=== PATIENT | male | born 1990 | race Caucasian/White ===

== ENCOUNTER → 2025-02-07 | Outpatient (CLI) | payer BC ==
[2025-02-07 10:58] LABS: Hematocrit 45.4 % (41.0-53.0); Hemoglobin 15.5 g/dL (13.5-17.5); Mean Corpuscular Hemoglobin 31.0 pg (28.0-32.0); Mean Corpuscular Volume 91.1 fL (80.0-100.0); Nucleated Red Blood Cells % 0.1 %
[2025-02-07 11:30] LABS: Amphetamine Screen, Urine Neg (NEGATIVE)
[2025-02-07 11:32] LABS: Alkaline Phosphatase 68 U/L (46-116); Anion Gap 11 (5-15); BUN/Creatinine Ratio 11.2 (10.0-20.0); Blood Urea Nitrogen 11 mg/dL (9-23); Carbon Dioxide 28 mmol/L (20-31); Chloride 102 mmol/L (98-107); Glucose 95 mg/dL (74-106); Potassium 4.0 mmol/L (3.5-5.1); Sodium 141 mmol/L (136-145); Total Protein 7.8 g/dL (5.7-8.2)
[2025-02-07 11:33] LABS: Bilirubin, Total 0.6 mg/dL (0.2-1.0); HDL Cholesterol 52 mg/dL (40-59)
[2025-02-07 11:41] LABS: Alanine Aminotransferase 98 U/L (7-40); Albumin 5.0 g/dL (3.2-4.8); Calcium 10.7 mg/dL (8.7-10.4); Cholesterol 285 mg/dL (< 200); Triglycerides 472 mg/dL (< 150)
[2025-02-07 11:42] LABS: Barbiturate Scree,Urine Neg (NEGATIVE); Benzodiazephine Screen, Urine Neg (NEGATIVE); Cannabinoid Screen, Urine Neg (NEGATIVE); Cocaine Screen, Urine Neg (NEGATIVE); Opiate Scree,Urine Neg (NEGATIVE); Phencyclidine Screen, Urine Neg (NEGATIVE)
[2025-02-07 12:28] LABS: Hepatitis A Total Antibody Negative (Negative); Hepatitis B Surface Antigen Negative (Negative)
[2025-02-07 12:29] LABS: Hepatitis C Antibody Negative (Negative)
== END | disposition home or self-care (01) ==
LOC: LAB 10:28
PROVIDERS: ATTEND Licensed Practical Nurse
DX: E55.9 Vitamin D deficiency, unspecified (principal); Z00.01 Encounter for general adult medical examination with abnormal findings; Z13.29 Encounter for screening for other suspected endocrine disorder; Z13.1 Encounter for screening for diabetes mellitus; Z13.220 Encounter for screening for lipoid disorders; Z13.6 Encounter for screening for cardiovascular disorders
CPT/HCPCS: 36415; 80053; 80061; 80307; 82043; 82306; 83036; 84443; 85025; 86704; 86706; 86708; 86803; 87340